=== PATIENT | male | born 1955 | race Caucasian/White ===

== ENCOUNTER 2016-06-04 19:43 | Emergency (ER) | payer OTHER ==
[~2016-06-04] VITALS: Ht 190.5 cm; Wt 117.9 kg
--- NOTE | 2016-06-04 21:05 | ED GENERAL ADULT ---
History of Present Illness General Chief Complaint: General Adult Stated Complaint: SENT HERE FROM [facility] FOR BILATERAL PNEUMONIA Source: patient, family Exam Limitations: no limitations Vital Signs & Intake/Output Vital Signs & Intake/Output Vital Signs Date Time Temp Pulse Resp B/P Pulse O2 O2 Flow FiO2 Ox Delivery Rate 06/04 2311 98.2 74 18 111/55 93 Room Air 06/04 2119 93 06/04 2038 99.4 77 18 128/64 95 Room Air ED Intake and Output 06/05 0000 06/04 1200 Intake Total 0 Output Total Balance 0 Intake, Oral 0 Patient 260 lb Weight Allergies Coded Allergies: No Known Allergies (06/04/16) Triage Note: PT TO ED FOR WORSENING SOB AND COUGH OVER PAST 24 HOURS, REPORTS HE HAD A COLD OVER THE PAST FEW DAYS AND TODAY STARTED TO FEEL SIG WORSE. REPORTING CLEAR SPUTUM. Triage Nurses Notes Reviewed? yes Onset: Gradual Duration: week(s): (1), worse persistent since (1 day) Timing: remote history Injury Environment: home Severity: moderate Severity Numbers: 6 No Modifying Factors: none HPI: Patient is a 61-year-old male with history of hypertension presenting to the emergency Department chief complaint of upper respiratory congestion, intimately productive cough of yellow clear sputum. Patient really denying any shortness of breath. Positive malaise intact fevers that hours today. He went to the walk-in clinic because he was feeling very tired and had a cough. They didn't x -ray and was told he had bilateral pneumonia. Patient's oxygen saturation ranged from 85-92 at the urgent care so they sent him in for evaluation of bilateral pneumonia. On arrival patient's pulse ox was low to mid 90s. Patient no respiratory distress. Patient with 30 feeling better since arrival to the hospital. Denies receiving any medications prior to arrival. (JEM SANTIAGO,SALOME) Reconcile Medications Albuterol Sulfate (Proair Hfa) 90 MCG HFA.AER.AD 2 PUF INH Q4-6 PRN PRN sob Aspirin (Ecotrin*) 81 MG TABLET.DR 1 TAB PO DAILY HEART/BLOOD (Reported) Azithromycin (Zithromax) 250 MG TABLET 1 DP PO AD bronchitis 2 the first day followed by 1 for days 2-5 Cholecalciferol (Vitamin D3) (Vitamin D) (Unknown Strength) CAPSULE (Unknown Dose) PO DAILY SUPPLEMENT (Reported) Losartan/Hydrochlorothiazide (Losartan-Hctz 100-25 MG Tab) 100 MG-25 MG TABLET 1 TAB PO DAILY BP (Reported) Methylprednisolone. (Medrol) 4 MG TAB.DS.PK 1 DP PO AD bronchitis 6 on day 1 then reduce by one tablet daily until gone Multivitamin (Multi-Day Vitamins) 1 EACH TABLET 1 TAB PO DAILY SUPPLEMENT ( Reported) (JOCELINE URENA,DERECK Bentley) Past History Travel History Traveled to [place] past 21 day No Medical History Any Pertinent Medical History? see below for history Neurological: NONE EENT: NONE Cardiovascular: hypertension Respiratory: NONE Gastrointestinal: NONE Hepatic: NONE Renal: NONE Musculoskeletal: NONE Psychiatric: NONE Endocrine: NONE Blood Disorders: NONE Cancer(s): NONE COMPUTER TECHNICIAN/Reproductive: NONE Surgical History Surgical History: non-contributory Psychosocial History What is your primary language Khmer Tobacco Use: Never used ETOH Use: denies use Illicit Drug Use: denies illicit drug use Family History Hx Contributory? No (SALOME [place]) Review of Systems Review of Systems Constitutional: Reports: see HPI, fever, malaise. Comments Review of systems: See HPI, All other systems negative. Constitutional, weight loss HEENT: No visual changes Cardiovascular: No chest pain ,palpitation , orthopnea or ankle swelling Skin, no jaundice no rashes Respiratory: No dyspnea or hemoptysis GI: No nausea no vomiting : No dysuria No hematuria Muscle skeletal: no back pain, no neck pain, Neurologic: No numbness no confusion no underwood Psych: No stress anxiety or depression,. Heme/endocrine: No bruising no bleeding no polyuria or polydipsia Immunology: No splenectomy or history of AIDS (SALOME [place]) Physical Exam Physical Exam General Appearance: well developed/nourished, no apparent distress, alert, awake , comfortable Comments: Well-developed well-nourished person in no acute distress HEENT: Pupils equally round and reactive to light and accommodation. Nose is atraumatic. External auditory canal and Tympanic membranes clear. Pharynx normal. No swelling or edema. Neck: Supple, no lymphadenopathy, normal range of motion without pain or tenderness Back: Nontender Cardiovascular: Regular rate and rhythms no murmurs rubs or gallops, normal JVP Respiratory: Chest nontender. No respiratory distress.breath sounds diminished to auscultation bilaterally. Dry cough on exam. Extremity: No edema, no calf tenderness to palpation, normal and equal pulses. Neuro: Alert oriented x3 Skin: No appreciable rash on exposed skin, skin is warm and dry. Psych: Mood and affect is normal, memory and judgment is normal. Core Measures ACS in differential dx? No CVA/TIA Diagnosis: No Severe Sepsis Present: No Septic Shock Present: No (JEM SANTIAGO,SALOME) Progress Differential Diagnoses I considered the following diagnoses in my evaluation of the patient: Bronchitis, pneumonia, pulmonary embolus, upper respiratory infection, viral syndrome, influenza Plan of Care: Orders Procedure Date/time Status Add-on Test (ER Only) 06/04 2220 Active D-DIMER 06/04 2129 Complete BLOOD CULTURE 06/04 2058 Active COMPREHENSIVE METABOLIC PANEL 06/04 2040 Complete CBC WITHOUT DIFFERENTIAL 06/04 2040 Complete Current Medications Sig/Ashley Start time Last Medication Dose Stop Time Status Admin Ceftriaxone Sodium 1,000 MG ONCE ONE 06/04 2214 CAN (Rocephin) 06/04 2215 Laboratory Tests 06/04/162129: Anion Gap 12, Estimated GFR > 60, BUN/Creatinine Ratio 22.2, Glucose 125 H, Calcium 9.3, Total Bilirubin 1.0, AST 34, ALT 37, Alkaline Phosphatase 75, Total Protein 7.0, Albumin 4.1, Globulin 2.9, Albumin/Globulin Ratio 1.4, D-Dimer 246 H, CBC w Diff MAN DIFF ORDERED, RBC 4.57 L, MCV 91.5, MCH 31.3 H, RDW 12.5, MPV 7.9, Gran % 88.6 H, Lymphocytes % 4.3 L, Monocytes % 6.7, Eosinophils % 0.1, Basophils % 0.3, Absolute Granulocytes 10.3 H, Segmented Neutrophils 77 H , Band Neutrophils 7 H, Absolute Lymphocytes 0.5 L, Lymphocytes 7 L, Monocytes 8, Absolute Monocytes 0.8 H, Absolute Eosinophils 0, Absolute Basophils 0, Metamyelocytes 1, Platelet Estimate ADEQUATE, Anisocytosis 1+, Macrocytic Cells 1+, PUBS MCHC 34.2 Microbiology 06/04 2129 BLOOD: Blood Culture - RECD 06/04 2127 BLOOD: Blood Culture - RECD Diagnostic Imaging: Viewed by Me: Radiology Read. Discussed w/RAD: Radiology Read. CXR Impression: no acute abnormality, no infiltrates, normal size heart, normal mediastinum Initial ED EKG: none Comments: On arrival patient given breathing treatment, oxygen saturation is ranging around mid 90s on room air. No acute distress. Lungs are diminished at the bases bilaterally. Patient will go for repeat x-ray as I am having a difficult time loading the CD into the computer system. Patient afebrile. No lower extremity edema. No recent travel. No history of blood clots. Patient feeling much better after breathing treatment. An x-ray oxygen saturation remains between 90-94%. X-rays negative for pneumonia. Cannot exclude pulmonary embolus. D-dimer is negative for age-adjusted level. Patient was given IV azithromycin for bronchitis and a dose of IV Solu-Medrol. He will start antibiotics, steroids and given a inhaler for bronchitis. He'll follow up with his primary care physician on Tuesday. Patient nontoxic. (SALOME [place]) Departure Departure Time of Disposition: 2304 Disposition: HOME OR SELF CARE Condition: Stable Clinical Impression Primary Impression: Bronchitis Referrals: ANETTE URENA,CHARISSA Carvalho (PCP/Family) Additional Instructions: Follow-up with your primary care physician on Tuesday call to make an appointment. Increase fluids. Take Medrol dosepak as prescribed. Take Z-Kris as prescribed. Use albuterol inhaler as directed. Return for worsening symptoms or concerns. Departure Forms: Customer Survey General Discharge Information Prescriptions: Current Visit Scripts Albuterol Sulfate (Proair Hfa) 2 PUF INH Q4-6 PRN PRN sob #1 INHAL Methylprednisolone. (Medrol) 1 DP PO AD #1 DP 6 on day 1 then reduce by one tablet daily until gone Azithromycin (Zithromax) 1 DP PO AD #6 TAB 2 the first day followed by 1 for days 2-5 (SALOME [place]) PA/TEA AND SPICE SUPERVISOR Co-Sign Statement Statement: ED Attending supervision documentation- [] I saw and evaluated the patient. I have also reviewed all the pertinent lab results and diagnostic results. I agree with the findings and the plan of care as documented in the PA's/TEA AND SPICE SUPERVISOR's documentation. [x] I have reviewed the ED Record and agree with the PA's/TEA AND SPICE SUPERVISOR's documentation. [] Additions or exceptions (if any) to the PAs/TEA AND SPICE SUPERVISOR's note and plan are summarized below: [] (JOCELINE URENA,DERECK Bentley) Critical Care Note Critical Care Note Critical Care Time: non-applicable (JEM SANTIAGO,SALOME)
[2016-06-04 21:34] LABS: ABSOLUTE BASOPHIL COUNT 0 /CUMM (0.0-0.2); ABSOLUTE EOSINOPHIL COUNT 0 /CUMM (0.0-0.7); ABSOLUTE GRANULOCYTE CT 10.3 /CUMM (1.4-6.5); ABSOLUTE LYMPH COUNT 0.5 /CUMM (1.2-3.4); ABSOLUTE MONOCYTE COUNT 0.8 /CUMM (0.10-0.60); BASOPHIL % 0.3 % (0.0-2.0); EOSINOPHIL % 0.1 % (0-5); GRANULOCYTE % 88.6 % (42.2-75.2); HEMATOCRIT 41.8 % (42-52); MEAN CORPUSCULAR HGB 31.3 PG (27.0-31.0); MEAN CORPUSCULAR HGB CONC 34.2 G/DL (33.0-37.0); MEAN CORPUSCULAR VOLUME 91.5 FL (80.0-94.0); MEAN PLATELET VOLUME 7.9 FL (7.4-10.4); PLATELET COUNT 166 /CUMM (130-400); RBC DISTRIBUTION WIDTH 12.5 % (11.5-14.5); RED BLOOD CELL CT 4.57 /CUMM (4.70-6.10); WHITE BLOOD CELL COUNT 11.6 /CUMM (4.8-10.8)
--- NOTE | 2016-06-04 22:16 | RADIOLOGY REPORT ---
EXAMINATION: XR CHEST CLINICAL INFORMATION: Cough and shortness of breath COMPARISON: None. TECHNIQUE: PA and lateral views of the chest were obtained. FINDINGS: Heart size is enlarged. No pulmonary vascular congestion. No infiltrate or pleural effusion. Multilevel bridging vertebral endplate osteophytes of dorsal spine. IMPRESSION: Unremarkable examination.
[2016-06-04] MEDS ORDERED: ASPIRIN EC81 M1 PO (22:27)
[2016-06-04] MEDS ORDERED: LOSARTAN-HCTZ1 EAC2 PO (22:27)
[2016-06-04] MEDS ORDERED: VITAMIN D2000 UNIT PO (22:28)
[2016-06-04] MEDS ORDERED: MULTI-DAY VITA1 EACH PO (22:28)
[2016-06-04] MEDS ORDERED: MEDROL4 M2 PO (23:07)
[2016-06-04] MEDS ORDERED: ZITHROMAX250 M2 PO (23:07)
[2016-06-04] MEDS ORDERED: PROAIR HFA8.5 GM INH (23:07)
[2016-06-04 23:11] VITALS: BP 111/55
== END 2016-06-04 23:48 ==
LOC: ERH 19:43
PROVIDERS: Emergency Medicine
DX: J40 Bronchitis, not specified as acute or chronic (principal)
CPT/HCPCS: 1263; 87040; 96374; J0696; J2930